=== PATIENT | male | born 1970 | race Caucasian/White ===

== ENCOUNTER → 2025-01-12 12:34 | Outpatient (REF) | payer OTHER, SELFPAY ==
--- NOTE | 2025-01-12 14:10 | CARDSERVLU ---
Echocardiogram with Lumason completed after protocol screening completed. Allergies verified.
Patent IV site: __new start 20 RAC 1st attempt___
IV site flushed with 0.9% NaCl pre and post administration.
Diluted bolus method utilized to enhance visualization of ventricular snell.
Total volume given: __7.0__ mL
site dcd at completion of test by echosonographer.
Patient tolerated all procedures well without complications.
== END ==
LOC: RCS 12:34
PROVIDERS: ATTENDING PHYSICIAN Nurse Practitioner; FAMILY PHYSICIAN Internal Medicine
DX: I10 Essential (primary) hypertension (principal); R06.09 Other forms of dyspnea
CPT/HCPCS: 93306; Q9950